=== PATIENT | female | born 1970 | race Caucasian/White ===

== ENCOUNTER 2021-10-26 12:13 | Inpatient (IN) | payer OTHER ==
[~2021-10-26] VITALS: Ht 165.1 cm; Wt 107.3 kg
[~2021-10-26 12:13] MED LIST: AMLODIPINE BESY10 MG PO; ASPIRIN EC81 M1 PO; ATORVASTATIN CA40 MG PO; COREG12.5 MG PO; GLIPIZIDE 5 MG (5 MG PO; ISOSORBIDE MONO30 MG PO; LIPITOR40 MG PO; POTASSIUM CHLO10 MEQ PO
[2021-10-26 13:48] LABS: BASOPHIL 0.6 % (0-2); EOSINOPHIL 0.2 % (0-5); HCT 37.4 % (37.0-47.0); HGB 11.4 g/dl (12.5-16.0); MCH 28.1 pg (25.0-31.0); MCHC 30.5 g/dL (32.0-36.0); MCV 92.1 fL (78.0-100.0); MONOCYTE 8.6 % (0-12); NEUTROPHIL 61.5 % (41-80); NRBC 0; PLT 190 K/uL (150-400); RBC 4.06 M/uL (4.20-5.40); RDW 16.5 % (11.5-14.0); WBC 5.3 K/uL (4.0-10.5)
[2021-10-26 14:14] LABS: LYMPHOCYTE 28.5 % (15-48)
[2021-10-26 14:23] LABS: BUN/CREAT RATIO (CALC) 18.2 RATIO; CREATININE 0.77 mg/dL (0.51-0.95); POTASSIUM 3.9 mmol/L (3.5-5.1)
[2021-10-26 16:13] LABS: INR 1.15 (0.9-1.2); PROTHROMBIN TIME 14.1 SECONDS (11.8-13.4)
[2021-10-26 16:14] LABS: PTT 38.8 SECONDS (24.4-34.7)
[2021-10-26 17:23] LABS: ALBUMIN 3.1 g/dL (3.4-5.0); BILIRUBIN - TOTAL 0.3 mg/dL (0.2-1.0); BUN/CREAT RATIO (CALC) 14.8 RATIO; CREATININE 0.81 mg/dL (0.51-0.95); GLOBULIN (CALCULATION) 5.4 g/dL; POTASSIUM 4.7 mmol/L (3.5-5.1); TOTAL PROTEIN 8.5 g/dL (6.4-8.2)
[2021-10-26 17:57] LABS: CORONAVIRUS 2019 SARS-COV-2 NEGATIVE (NEGATIVE); INFLUENZA A NAA NEGATIVE (NEGATIVE)
[2021-10-27 04:08] LABS: BASOPHIL 0.5 % (0-2); EOSINOPHIL 0 % (0-5); HCT 33.2 % (37.0-47.0); HGB 10.1 g/dl (12.5-16.0); LYMPHOCYTE 27.5 % (15-48); MCH 28.6 pg (25.0-31.0); MCHC 30.4 g/dL (32.0-36.0); MCV 94.1 fL (78.0-100.0); MONOCYTE 8.8 % (0-12); MPV 10.6 fL (6.0-9.5); NRBC 0; PLT 143 K/uL (150-400); RBC 3.53 M/uL (4.20-5.40); RDW 16.4 % (11.5-14.0); WBC 3.9 K/uL (4.0-10.5)
[2021-10-27 04:13] LABS: NEUTROPHIL 62.2 % (41-80)
[2021-10-27 04:28] LABS: BUN/CREAT RATIO (CALC) 18.6 RATIO; CREATININE 0.7 mg/dL (0.51-0.95); POTASSIUM 4.4 mmol/L (3.5-5.1)
[2021-10-27] MEDS ORDERED: DEMADEX20 MG PO (07:25)
[2021-10-27] MEDS ORDERED: METFORMIN HCL500 M3 PO (07:26)
[2021-10-27] MEDS ORDERED: LISINOPRIL40 MG PO (07:27)
[2021-10-29 06:38] LABS: BASOPHIL 0.7 % (0-2); EOSINOPHIL 1.5 % (0-5); HCT 30.1 % (37.0-47.0); HGB 9.3 g/dl (12.5-16.0); LYMPHOCYTE 42.8 % (15-48); MCH 28.4 pg (25.0-31.0); MCHC 30.9 g/dL (32.0-36.0); MCV 91.8 fL (78.0-100.0); MONOCYTE 7.1 % (0-12); MPV 11.3 fL (6.0-9.5); NEUTROPHIL 47.4 % (41-80); NRBC 0; PLT 152 K/uL (150-400); RBC 3.28 M/uL (4.20-5.40); RDW 16.8 % (11.5-14.0); WBC 4.1 K/uL (4.0-10.5)
[2021-10-29 06:52] LABS: BUN/CREAT RATIO (CALC) 17.6 RATIO; CREATININE 0.74 mg/dL (0.51-0.95); POTASSIUM 3.6 mmol/L (3.5-5.1)
[2021-10-29] MEDS ORDERED: LOPRESSOR25 MG PO (08:20)
[2021-10-29] MEDS ORDERED: ISOSORBIDE MONO60 MG PO (08:20)
[2021-10-29] MEDS ORDERED: AZITHROMYCIN250 MG PO (08:23)
[2021-10-29] MEDS ORDERED: CEFDINIR300 MG PO (08:23)
--- NOTE | 2021-10-30 11:47 | NUR ---
10/30/21 Ms. Rosas lives at home with her spouse and 19 y/o daughter who is disabled. She has a C-PAP at home, otherwise is independent in the home and community. Ms. Lombardo chose [facility] for 02 if needed.
[2021-10-30] MEDS ORDERED: VENTOLIN HFA IN18 GM INH (14:48)
--- NOTE | 2021-10-30 14:53 | NUR ---
10/30/21 A referral was made to [facility] for 02 at 4 L to be blended with C-PAP. Report given to REMY Jarquin RN.
== END 2021-10-30 16:30 | disposition home or self-care (01) | DRG 193 ==
LOC: FER 12:13 → FICU 18:05 → FTCU 18:05 → FICU 10-27 09:31 → FTCU 10-28 10:00
PROVIDERS: Nurse Practitioner Family; ADMIT Allergy & Immunology Allergy
DX: J18.9 Pneumonia, unspecified organism (principal); J96.01 Acute respiratory failure with hypoxia; I21.A1 Myocardial infarction type 2; I47.2 Ventricular tachycardia; Z20.822 Contact with and (suspected) exposure to COVID-19; E11.9 Type 2 diabetes mellitus without complications; E78.00 Pure hypercholesterolemia, unspecified; D64.9 Anemia, unspecified; I10 Essential (primary) hypertension; D89.0 Polyclonal hypergammaglobulinemia; G47.33 Obstructive sleep apnea (adult) (pediatric); M51.36 Other intervertebral disc degeneration, lumbar region; E66.01 Morbid (severe) obesity due to excess calories; Z68.38 Body mass index [BMI] 38.0-38.9, adult; I25.2 Old myocardial infarction; Z95.1 Presence of aortocoronary bypass graft; Z99.81 Dependence on supplemental oxygen; Z79.84 Long term (current) use of oral hypoglycemic drugs; Z79.82 Long term (current) use of aspirin; Z79.899 Other long term (current) drug therapy; Z80.49 Family history of malignant neoplasm of other genital organs; Z87.440 Personal history of urinary (tract) infections
CPT/HCPCS: 36415; 36600; 71045; 71275; 80048; 80053; 82803; 82962; 83735; 83880; 84484; 85025; 85379; 85610; 85730; 86140; 87040; 93005; 94640; 94660; 94667; 94668; 94762; A4216; J0360; J0456; J0696; J1100; J1650; J7030; J7040; J7050; Q9967; U0002